=== PATIENT | female | born 1990 | race Caucasian/White ===

== ENCOUNTER 2022-06-17 09:07 | Emergency (ER) | payer SELFPAY ==
[2022-06-17 09:08] VITALS: BP 125/97; PULSE 88; RESP 14; TEMP 36.3; O2SAT 96; BMI 26.6
--- NOTE | 2022-06-17 09:31 | RAD_ITS ---
EXAM: XR CHEST, 2 VIEWS CLINICAL INDICATION: cough TECHNIQUE: Frontal and lateral views of the chest. COMPARISON: 01/11/2017 FINDINGS: LUNGS AND PLEURAL SPACES: Unremarkable. No consolidation or edema. No pneumothorax. No effusion. HEART: Unremarkable. Cardiac silhouette not enlarged. MEDIASTINUM: Central airways and mediastinal contour are unremarkable. BONES/JOINTS: Unremarkable. SOFT TISSUES: Unremarkable. RAD/Chest PA and Lateral IMPRESSION: No radiographic evidence of acute cardiopulmonary disease. Electronically Signed: Dk Fraire MD at 9:55 EDT ,
--- NOTE | 2022-06-17 09:37 | EX.ED.DYSGE1 ---
HPI History of Present Illness Chief Complaint: Back Informant: patient Narrative Narrative: Patient is a 31-year-old female presenting for evaluation of acute low back pain as well as chronic cough and hoarse voice. Patient states that she has had pretty persistent cough since January. She has been on a course of amoxicillin as well as steroids in January. She was seen again in March was placed on a course of doxycycline. She notes after March she felt better for a few weeks but lost her voice over that time and is still been hoarse since. She has had a continued cough. She states cough is nonproductive. She will get a stress incontinence with it as well as episodes of posttussive emesis. She does have a rescue inhaler as well as which she thinks is fluticasone which she has been taking but her symptoms are not improving. Is worse when she lays flat. She notes she threw out her back yesterday and is now having worsening back pain every time she coughs. She denies any recent fevers. She has been taking Advil as well as Tessalon Perles with no relief of her symptoms. She states she could not sleep last night secondary to the back pain and the coughing. She did just move back to [place] from [place]. 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 She is her last chest x-ray was in February or March. She has had some weight gain. Denies any night sweats or weight loss. Does have a history of eczema. No other complaints or concerns at this time. No longer smokes. Has minimal exposure to secondhand smoke. Notes that she used to work at [employer] and that the smoke from the tables would also bother her breathing. Does not currently have any pets. [facility] Medical History Asthma Home Medications albuterol sulfate 90 mcg/actuation aerosol inhaler 1 puff inhalation Q4H 06/17/22 [History Last Taken Unknown] budesonide-formoterol HFA 160 mcg-4.5 mcg/actuation aerosol inhaler (Symbicort) 2 puff inhalation BID #10.2 grams 06/17/22 [Rx Last Taken Unknown] cyclobenzaprine 10 mg tablet 10 mg PO TID PRN Muscle Spasm #20 TABLETS 06/17/22 [Rx Last Taken Unknown] montelukast 10 mg tablet (Singulair) 10 mg PO DAILY #30 tabs 06/17/22 [Rx Last Taken Unknown] Allergy/AdvReac Type Severity Reaction Status Date / Time No Known Allergies Allergy Verified 06/17/22 09:09 Social History Smoking Status: Former smoker ROS ROS ED Constitutional Constitutional ED: Denies chills or fever(s) Eyes Eyes: Denies change in vision ENT ENT ED: Reports other Details: hoarse ; Denies sore throat Cardiovascular Cardiovascular: Denies chest pain, orthopnea or palpitations Respiratory/Chest Respiratory/Chest: Reports cough; Denies dyspnea, dyspnea on exertion or orthopnea Gastrointestinal Gastrointestinal: Denies abdominal pain, nausea or vomiting Musculoskeletal Musculoskeletal: Reports back pain; Denies arthralgias, myalgias or neck pain Integumentary Denies rash Neurologic Neurologic: Denies headache(s) Psychiatric Psychiatric: Denies anxiety Hematologic/Lymphatic Hematologic/Lymphatic: Denies easy bleeding or easy bruising EXAM Physical Exam Const Vital Signs: 06/17/22 09:08 Temperature 97.4 F L Temperature Source Temporal Pulse Rate 88 Respiratory Rate 14 Blood Pressure 125/97 H Blood Pressure Mean 106 Pulse Ox 96 Oxygen Delivery Method Room Air Positive well nourished and well developed General Appearance ED: well developed and NAD HEENT Reports TM's clear and moist mucous membranes HEENT Narrative: hoarse voice on exam Tympanic Membrane ED: Yes TM's clear Eyes PERRL and EOMs intact bilaterally Neck supple Neck Narrative: no stridor Chest Wall inspection of chest normal and palpation of chest normal Resp normal respiratory effort and clear to auscultation bilaterally Auscultation: Negative for rales, rhonchi or wheezes Cardio regular rate, regular rhythm and no murmurs GI normal to inspection, nondistended, normoactive bowel sounds and non-tender Back/Spine Back/Spine Narrative: no reproducible TTP General Back: Negative for CVA tenderness Thoracic Spine / Upper Back: Negative for thoracic spinal tenderness Lumbar Spine / Lower Back: Negative for lumbar spinal tenderness Extremity normal to inspection General Extremety ED: Negative for edema or tenderness General Extremity: Negative for edema Neuro oriented x3 Sensorium / Orientation: alert Motor Exam: Negative for general weakness Psych mental status grossly normal Skin no rashes or lesions noted and no wounds MDM MDM MDM Narrative Medical decision making narrative: Patient's evaluated for acute low back pain that seems to be muscle skeletal. She has no red flag symptoms for cauda equina syndrome. No midline tenderness. I do not think imaging is indicated. Admission she has had a persistent and worsening cough for months. She has associated hoarse voice. I suspect she has a component of asthma that is poorly controlled at this point. 2 view chest x-ray is obtained and interpreted by myself. This does not show any acute infiltrate. Case is discussed with pulmonology on-call, Dr. Acharya who is agreeable with starting montelukast as well as either Symbicort, Dulera or Advair and stopping her fluticasone. He also recommends a spacer and is improper use of the inhaler could be contributing to her hoarseness. Patient is given a prescription for Symbicort but counseled that if this medication is not on formulary for insurance we might need to switch it to either Dulera or Advair. Patient counseled to call back to the ER if she has an issue affording the medication. Dr. Acharya did recommend starting her at the higher dose of these medications because of the severity of her symptoms. Patient does not need a refill for her albuterol. She is given a prescription as well for Flexeril to help with her back pain and counseled alternate Tylenol and ibuprofen. Counseled use heat for her back. Encouraged to follow-up with pulmonology as well as primary care doctor. Is also given referral for ENT for her hoarseness. Instructed that she can add in Zyrtec if these other medications are not helping. Patient verbalizes agreement understand this plan. Discharged home in stable condition. Given return precautions. Radiography Chest X-Ray - ED: 2 View, Read by ED Physician, Read by Radiologist and No Acute Disease Diagnostic Testing: Clinical Impression(s) from Imaging Studies Chest X-Ray 06/17/22 09:31 IMPRESSION: No radiographic evidence of acute cardiopulmonary disease. Electronically Signed: Dk Fraire MD at 9:55 EDT , Differential Diagnosis Chest pain/SOB: pulmonary embolism Reason(s) PE less likely: Positive for PERC negative, not tachycardic and not hypoxic, pneumothorax Reason(s) pneumothorax less likely: Positive for bilateral breath sounds and FUR GLAZER withhout PTX and pneumonia Reason(s) pneumonia less likely: Positive for no infiltrate on CXR, no noted fever and symptoms not consistent with acute infection Management Discussion w/another healthcare provider: [employer] Discharge Plan Triage Chief Complaint: Back ED Provider: Robyn Ball Dx/Rx/DC Orders Clinical Impression: Lumbar back sprain, Poorly controlled persistent asthma, Cough, Hoarse voice quality Instructions: Asthma Medicine, ED Back Sprain/Strain, ED Inhaler Use Prescriptions: New budesonide-formoterol [Symbicort] 160-4.5 mcg/actuation HFA aerosol inhaler 2 puff inhalation BID Qty: 10.2 0RF cyclobenzaprine 10 mg tablet 10 mg PO TID PRN (Reason: Muscle Spasm) Qty: 20 0RF montelukast [Singulair] 10 mg tablet 10 mg PO DAILY Qty: 30 0RF No Action albuterol sulfate 90 mcg/actuation HFA aerosol inhaler 1 puff INHALATION Q4H Label Comments: INHALE 1-2 PUFFS EVERY 4-6 HOURS NEEDED FOR WHEEZING FOR UP TO 30 DAYS Primary Care Provider: Wood Feliciano Referrals: Nathan Acharya DO [Med Staff - Active Staff] - As soon as possible Wood Feliciano MD [Primary Care Provider] - Elie Cruz MD [Med Staff - Active Staff] - As Needed Activity Restrictions/Additional Instructions: Stop taking the fluticasone inhaler. You been switched to a different long-acting inhaler (Symbicort). Use the spacer with both your albuterol inhaler and the Symbicort. If the Symbicort is not covered by your insurance, call back to the ER later today and we can switch it to a similar medicine. You may also add in a daily [id number] Zyrtec if these new medications are not helping providing adequate relief. Disposition Disposition: Home, Self Care
[2022-06-17] MEDS: cycloBENZAPRine HCl 10 MG Tablet PO (10:32)
[2022-06-17] MEDS: Acetaminophen 325 MG Tablet 650 MG PO (10:32)
== END 2022-06-17 11:11 | disposition home or self-care (01) ==
PROVIDERS: Emergency Provider Emergency Medicine; PCP Family Medicine; Visit Provider Emergency Medicine
DX: S33.5XXA Sprain of ligaments of lumbar spine, initial encounter (principal); J45.909 Unspecified asthma, uncomplicated; R05.9 Cough, unspecified; R49.0 Dysphonia; Z87.891 Personal history of nicotine dependence; X58.XXXA Exposure to other specified factors, initial encounter
CPT/HCPCS: 71046; 99283